=== PATIENT | female | born 1970 | race Caucasian/White ===

== ENCOUNTER → 2019-07-20 | Outpatient (CLI) | payer BC ==
[2008-05-22 20:59] VITALS: BP 155/77
[2019-07-20] VITALS (12 sets, daily range): BP systolic 103–125; BP diastolic 54–80; PULSE 79–94
[~2019-07-20] VITALS: Ht 177.8 cm; Wt 103.4 kg
[~2019-07-20] MED LIST: ALDACTONE 100M100 MG PO; BUSPAR10 MG PO; FARXIGA10 PO; GLUCOPHAGE1000 MG PO; K-DUR 10 MEQ T10 MEQ PO; LASIX 40MG TABL40 MG PO; SYNTHROID0.137 MG PO; XANAX .25M0.25 MG/TA PO
--- NOTE | 2019-07-20 10:28 | NUR ---
PT TAKEN TO CT AND PLACED ON THE TABLE. MONITORING EQUIPMENT PLACED ON PT. IMAGING DONE AND SENT
--- NOTE | 2019-07-20 10:53 | NUR ---
SPECIMENS TAKEN. PROCEDURE COMPLETE. PT ABLE TO TRANSFER SELF TO WHEELCHAIR.
--- NOTE | 2019-07-20 12:29 | NUR ---
PT WAS TAKEN DOWN IN WHEELCHAIR TO V.
== END ==
LOC: COL.RAD 09:30
DX: K74.60 Unspecified cirrhosis of liver (principal)

== ENCOUNTER 2019-07-27 08:03 | Day surgery (SDC) | payer BC ==
[2008-05-22 20:59] VITALS: BP 155/77
[~2019-07-27] VITALS: Ht 177.8 cm; Wt 105.5 kg
[2019-07-27 08:28] VITALS: BP 122/73; PULSE 69; TEMP 98.3
[2019-07-27 09:35] VITALS: BP 133/82; PULSE 82; TEMP 98.1
--- NOTE | 2019-07-27 09:35 | NUR ---
TO [facility] PER CART FROM ENDOSCOPY. AMULATED TO RECLINER WITH ASSIST AND TOLERATED WELL. AT BEDSIDE. DENIES WANTING ANYTHING TO DRINK AT THIS TIME.
[2019-07-27 09:50] VITALS: BP 129/76; PULSE 66
--- NOTE | 2019-07-27 09:50 | NUR ---
CONTINUES TO DENY PAIN OR DISCOMFORT. RECEIVED ICE WATER.
[2019-07-27 10:05] VITALS: BP 113/75; PULSE 66
--- NOTE | 2019-07-27 10:05 | NUR ---
DISCONTINUED IV AND INT- CATHETER INTACT PATIENT GETTING DRESSED AND WAITING FOR DR BRYANT.
--- NOTE | 2019-07-27 10:30 | NUR ---
DR BRYANT INTO TALK WITH PATIENT AND . RECEIVED DISCHARGE INSTRUCTIONS AND VERBALIZED UNDERSTANDING.
--- NOTE | 2019-07-27 10:39 | NUR ---
DISCHARGED PER WC BY NURSING STAFF TO PRIVATE CAR IN CARE OF ANA MARIA.
== END 2019-07-27 10:40 | disposition home or self-care (01) ==
LOC: SDCO 08:03
DX: I85.00 Esophageal varices without bleeding (principal); K74.60 Unspecified cirrhosis of liver; F41.9 Anxiety disorder, unspecified; E28.2 Polycystic ovarian syndrome; E11.9 Type 2 diabetes mellitus without complications; Z79.4 Long term (current) use of insulin; Z79.84 Long term (current) use of oral hypoglycemic drugs; Z88.2 Allergy status to sulfonamides; Z79.899 Other long term (current) drug therapy; E07.9 Disorder of thyroid, unspecified
CPT/HCPCS: J2704; J7030

== ENCOUNTER 2019-08-31 09:08 | Day surgery (SDC) | payer BC ==
[2008-05-22 20:59] VITALS: BP 155/77
[~2019-08-31] VITALS: Ht 177.8 cm; Wt 101.1 kg
[2019-08-31 09:52] VITALS: BP 111/73; PULSE 65; TEMP 98.3
--- NOTE | 2019-08-31 10:05 | NUR ---
TO RM AT 0930 CALL LIGHT IN REACH IN WAITING RM
[2019-08-31 10:55] VITALS: BP 137/82; PULSE 77; TEMP 97.4
--- NOTE | 2019-08-31 10:55 | NUR ---
Patient arrives to [facility] via cart, accompanied by Endo RN Sylvia. Bedside report received. Patient is very emotional, crying and asking for tissues, which she receives. She is alert and oriented. She ambulates with steady gait to chair in room. Monitoring applied - VSS and WNL on room air. She complains of mild gastric pain, which is present at baseline. SHe has Ultram at home PRN for treatment of pain and is prescribed magic mouthwash in addition. Patient denies any nausea. She is offered something to drink - refuses at this time. Will continue to monitor.
[2019-08-31 11:00] VITALS: BP 137/72; PULSE 73
--- NOTE | 2019-08-31 11:00 | NUR ---
Patient's VSS and WNL on room air. Resting in room. No complaints at this time.
[2019-08-31 11:15] VITALS: BP 134/83; PULSE 76
--- NOTE | 2019-08-31 11:15 | NUR ---
Patient is less emotional at this time. She is sitting in chair, denies complaints. She is offered water to drink and receives. Spouse brought to the bedside.
[2019-08-31 11:30] VITALS: BP 133/68; PULSE 67
--- NOTE | 2019-08-31 11:30 | NUR ---
PATIENT RESTING IN CHAIR. DENIES NAUSEA. RATES PAIN AT 7/10 SAME BEFORE NO WORSE. WARM BLANKET GIVEN FOR COMFORT. SIPS ON GLASS OF WATER.
[2019-08-31 11:45] VITALS: BP 131/85; PULSE 69
--- NOTE | 2019-08-31 11:45 | NUR ---
PATIENT HAVING NO NAUSEA TOLERATED ORAL FLUID WELL. IV DC'D @ 3799.
--- NOTE | 2019-08-31 12:20 | NUR ---
PATIENT ESCORTED TO EXIT BY JUAN MIGUEL VICTORIA VIA WHEELCHAIR. DISHCARGED TO HOME WITH RIDE BY PRIVATE CAR. DISCHARGE INSTRUCTIONS EXPLAINED AND REVIEWED. VERBAL UNDERSTANDING RECEIVED AND SIGNED. WRITTEN COPIES OF INSTRUCTIONS GIVEN TO PATIENT.
== END 2019-08-31 12:20 | disposition home or self-care (01) ==
LOC: SDCO 09:08
DX: K74.60 Unspecified cirrhosis of liver (principal); I85.10 Secondary esophageal varices without bleeding; K29.30 Chronic superficial gastritis without bleeding; E11.9 Type 2 diabetes mellitus without complications; F41.9 Anxiety disorder, unspecified; E28.2 Polycystic ovarian syndrome; E66.9 Obesity, unspecified; Z88.2 Allergy status to sulfonamides; Z79.84 Long term (current) use of oral hypoglycemic drugs
CPT/HCPCS: J2704; J7030

== ENCOUNTER 2019-09-28 07:26 | Day surgery (SDC) | payer BC ==
[2008-05-22 20:59] VITALS: BP 155/77
[~2019-09-28] VITALS: Ht 177.8 cm; Wt 100.0 kg
[2019-09-28 07:54] VITALS: BP 98/58; PULSE 59; TEMP 97.5
[2019-09-28] MEDS ORDERED: CORGARD40 MG PO (08:02)
[2019-09-28] MEDS ORDERED: ERGOCALCIFER50000 IU PO (08:04)
[2019-09-28] MEDS ORDERED: COMPOUND DRUG PO (08:05)
--- NOTE | 2019-09-28 08:06 | NUR ---
TO [facility] 6 AT 0730- CALL LIGHTIN REACH AT BEDSIDE.
[2019-09-28 09:00] VITALS: BP 105/82; PULSE 58; TEMP 97.2
[2019-09-28 09:15] VITALS: BP 94/46; PULSE 60
[2019-09-28 09:30] VITALS: BP 91/52; PULSE 58
--- NOTE | 2019-09-28 09:58 | NUR ---
Pt returned via cart to [facility]. A&O. SBA to recliner in [place]. Spouse brought to room. VSS-see flowsheet. Pt tolerated water. Denies complaints. Dr Mcwilliams visited with pt and . Discharge teaching completed, verbalized understanding. PTs IV removed and dressed. Taken via wheelchair to private vehicle for dc home with driving.
[2019-09-28 10:24] VITALS: BP 108/62; PULSE 67
== END 2019-09-28 09:58 | disposition home or self-care (01) ==
LOC: SDCO 07:26
DX: K74.60 Unspecified cirrhosis of liver (principal); I85.10 Secondary esophageal varices without bleeding; F41.9 Anxiety disorder, unspecified; E11.9 Type 2 diabetes mellitus without complications; E28.2 Polycystic ovarian syndrome; Z88.2 Allergy status to sulfonamides; Z79.84 Long term (current) use of oral hypoglycemic drugs
CPT/HCPCS: J2704; J3010; J7120

== ENCOUNTER 2020-04-11 07:42 | Day surgery (SDC) | payer BC ==
[2008-05-22 20:59] VITALS: BP 155/77
[~2020-04-11] VITALS: Ht 177.8 cm; Wt 103.7 kg
[~2020-04-11 07:42] MED LIST changes: +COMPOUND DRUG PO; +CORGARD40 MG PO; +ERGOCALCIFER50000 IU PO
[2020-04-11] MEDS ORDERED: SYNTHROID0.125 MG/T PO (08:07)
[2020-04-11] MEDS ORDERED: CRESTOR5 MG PO (08:08)
[2020-04-11 08:09] VITALS: BP 94/54; PULSE 66; TEMP 98.1
[2020-04-11] MEDS ORDERED: CORGARD20 MG PO (08:09)
[2020-04-11 08:50] VITALS: BP 106/59; PULSE 68; TEMP 98.3
[2020-04-11 09:05] VITALS: BP 88/55; PULSE 68
[2020-04-11 09:15] VITALS: BP 90/66
--- NOTE | 2020-04-11 09:27 | NUR ---
PT RETURNED PER CART INTO PT ROOM #2. PT SLEEPY, A/OX3, DENIES NAUSEA. VSS WILL CONT TO MONITOR.
[2020-04-11 09:30] VITALS: BP 90/50; PULSE 68; TEMP 98.3
--- NOTE | 2020-04-11 10:27 | NUR ---
PT ALERT AND ORIENTATED. HRR WITH A PT STATED, HEART MURMUR; WAS AUSCULTATED. BOWEL SOUNDS PRESENT. VSS, BP ON ADMISSION WAS 94/54. LUNGS CLEAR. DENIES NAUSEA, DENIES PAIN.
--- NOTE | 2020-04-11 10:34 | NUR ---
PT WAS DISCHARGED PER WC. PT VOIDED WITHOUT DIFFICULTY. PT A/OX3. DENIES PAIN AND NAUSEA. DENIED WANTING ANYMORE THAN WATER TO DRINK BECAUSE [facility]. IV WAS DC'D WITHOUT ANY DIIFICULTY TO RIGHT WRIST. WAS PRESENT AT BEDSIDE. DISCHARGE INSTRUCTIONS GIVEN, PT VOICES UNDERSTANDING.
[2020-04-11 21:14] VITALS: BP 99/56; PULSE 69
== END 2020-04-11 10:49 | disposition home or self-care (01) ==
LOC: SDCO 07:42
DX: I85.00 Esophageal varices without bleeding (principal); K74.60 Unspecified cirrhosis of liver; Z88.2 Allergy status to sulfonamides; E11.9 Type 2 diabetes mellitus without complications; E07.9 Disorder of thyroid, unspecified; Z79.84 Long term (current) use of oral hypoglycemic drugs; Z79.899 Other long term (current) drug therapy
CPT/HCPCS: J2704; J7030

== ENCOUNTER 2021-03-13 07:12 | Day surgery (SDC) | payer BC ==
[2008-05-22 20:59] VITALS: BP 155/77
[~2021-03-13] VITALS: Ht 177.8 cm; Wt 113.9 kg
[~2021-03-13 07:12] MED LIST changes: +CORGARD20 MG PO; +CRESTOR5 MG PO; +SYNTHROID0.125 MG/T PO
[2021-03-13 07:35] VITALS: BP 121/69; PULSE 68; TEMP 97.9
[2021-03-13] MEDS ORDERED: VITAMIN D31000 I1 PO (08:02)
[2021-03-13 09:15] VITALS: BP 123/64; PULSE 79; TEMP 97.7
--- NOTE | 2021-03-13 09:15 | NUR ---
Pt returned via cart to [facility]. SBA to recliner in [place]. Pt reports pain from banding. Denies wanting pain medication and reports she has magic mouthwash at home and it helps with her discomfort after this procedure. Pt sitting up in recliner and denies wanting to have any clear liquids at this time. Call light in reach. VSS-see flowsheet.
[2021-03-13 09:30] VITALS: BP 112/57; PULSE 78
[2021-03-13 09:45] VITALS: BP 106/72; PULSE 71
--- NOTE | 2021-03-13 10:00 | NUR ---
VS remain stable-see flowsheet. Pt refused anything to drink. Dr Bah was in to visit with patient post procedure. Pt dressed independently and IV removed with pressure dressing applied. Discharge teaching completed, pt verbalized understanding. Taken via wheelchair to exit and pt ambulated with a steady gait to private vehicle for daughter to drive pt home.
[2021-05-08] MEDS ORDERED: SYNTHROID0.137 MG PO (07:23)
== END 2021-03-13 10:00 | disposition home or self-care (01) ==
LOC: SDCO 07:12
DX: K74.60 Unspecified cirrhosis of liver (principal); I85.10 Secondary esophageal varices without bleeding; G47.00 Insomnia, unspecified; E28.2 Polycystic ovarian syndrome; E78.5 Hyperlipidemia, unspecified; M19.90 Unspecified osteoarthritis, unspecified site; E11.9 Type 2 diabetes mellitus without complications; E07.9 Disorder of thyroid, unspecified; Z79.899 Other long term (current) drug therapy; Z79.84 Long term (current) use of oral hypoglycemic drugs; Z79.890 Hormone replacement therapy
CPT/HCPCS: OP; J2704; J7030

== ENCOUNTER → 2021-05-08 | Day surgery (SDC) | payer BC ==
[2008-05-22 20:59] VITALS: BP 155/77
[~2021-05-08] VITALS: Ht 177.8 cm; Wt 111.9 kg
[~2021-05-08] MED LIST changes: +VITAMIN D31000 I1 PO
[2021-05-08 07:25] VITALS: BP 107/74; PULSE 72; TEMP 97
[2021-05-08 08:30] VITALS: BP 117/71; PULSE 71; TEMP 98.1
--- NOTE | 2021-05-08 08:30 | NUR ---
PATIENT BROUGHT BACK TO [facility] 4 VIA CART. PLACED ON MONITORS, STABLE. PATIENT STATES SHE HAS A PAIN OF 7/10 TO THROAT. STATES SHE DOES NOT WANT PAIN MEDICATION AT THIS TIME. STATES SHE DOES NOT WANT ANYTHING TO DRINK RIGHT NOW. PATIENT HAS HAD VARICEAL BANDING PREVIOUSLY. REPORT RECIEVED FROM DIANA SHORT RN. WARM BLANKET PROVIDED, WILL CONTINUE TO MONITOR.
[2021-05-08 08:45] VITALS: BP 101/65; PULSE 61
[2021-05-08 09:00] VITALS: BP 103/64; PULSE 55
--- NOTE | 2021-05-08 09:00 | NUR ---
PATIENT STATES SHE WOULD LIKE TO GO HOME AT THIS TIME. IV REMOVED, INTACT. PATIENT TO GET DRESSED AT THIS TIME. AMBULATED TO BATHROOM WITHOUT DIFFICULTY. WILL MONITOR.
--- NOTE | 2021-05-08 09:15 | NUR ---
DISCHARGE INSTRUCTIONS REVIEWED WITH PATIENT. SISTER IN PARKING LOT TO DRIVE HOME. BROUGHT DOWN TO LOBBY VIA WHEEL CHAIR. ALL BELONGINGS IN HAND,
== END ==
LOC: SDCO 06:53
DX: K74.60 Unspecified cirrhosis of liver (principal); I85.10 Secondary esophageal varices without bleeding; E78.5 Hyperlipidemia, unspecified; E07.9 Disorder of thyroid, unspecified; E11.9 Type 2 diabetes mellitus without complications; Z79.84 Long term (current) use of oral hypoglycemic drugs; Z20.822 Contact with and (suspected) exposure to COVID-19; Z79.890 Hormone replacement therapy; Z79.899 Other long term (current) drug therapy
CPT/HCPCS: J2704; J7030

== ENCOUNTER 2021-06-05 06:05 | Day surgery (SDC) | payer BC ==
[2008-05-22 20:59] VITALS: BP 155/77
[~2021-06-05] VITALS: Ht 177.8 cm; Wt 112.1 kg
[2021-06-05 06:42] VITALS: BP 112/76; PULSE 64; TEMP 98.4
[2021-06-05 07:25] VITALS: BP 98/57; PULSE 63; TEMP 97.2
[2021-06-05 07:30] VITALS: BP 110/55; PULSE 62
[2021-06-05 07:45] VITALS: BP 97/58; PULSE 57
--- NOTE | 2021-06-05 08:05 | NUR ---
0725 Pt returns from endo procedure via cart to [facility]. Pt ambulates from cart to recliner with RN assist. Monitors on and alarms set. Call light within reach. Report received from JULIEN Carvalho. Pt denies pain or nausea. Pt alert and oriented. Pt requests water and food. 0740 Pt taking food and drink well. 0800 Discharge instructions given to pt. All questions answered to her satisfaction. Handed to her are a thank you card and discharge information. 0805 Pt transferred out of the hospital via wheelchair and this RN assist to private vehicle driven by pt's family.
== END 2021-06-05 08:05 | disposition home or self-care (01) ==
LOC: SDCO 06:05
DX: K74.60 Unspecified cirrhosis of liver (principal); I85.10 Secondary esophageal varices without bleeding; K22.8 Other specified diseases of esophagus; G47.00 Insomnia, unspecified; E28.2 Polycystic ovarian syndrome; E03.9 Hypothyroidism, unspecified; E11.9 Type 2 diabetes mellitus without complications; E78.5 Hyperlipidemia, unspecified; F41.9 Anxiety disorder, unspecified; Z20.822 Contact with and (suspected) exposure to COVID-19
CPT/HCPCS: J2704; J3010; J7030

== ENCOUNTER 2022-06-11 06:56 | Day surgery (SDC) | payer BC ==
[2008-05-22 20:59] VITALS: BP 155/77
[~2022-06-11] VITALS: Ht 177.8 cm; Wt 117.0 kg
[2022-06-11 07:26] VITALS: BP 112/69; PULSE 66; TEMP 97.1
[2022-06-11 08:25] VITALS: BP 104/62; PULSE 68; TEMP 96.7
[2022-06-11 08:40] VITALS: BP 99/54; PULSE 64
[2022-06-11 08:55] VITALS: BP 97/58; PULSE 65
--- NOTE | 2022-06-11 09:15 | NUR ---
0825 PT RETURNED TO [facility] VIA CART. TRANSFERRED TO CHAIR WITH RN ASSIST. ALERT AND ORIENTED. MONITORS ATTACHED, INTERVALS AND ALARMS SET. VSS. PT DENIES PAIN OR NAUSEA. FOOD AND DRINK PROVIDED. CALL LIGHT IN REACH. 0840 VSS. PT DENIES DISCOMFORT. TOLERATING FOOD AND DRINK WELL. 0855 VSS. PT DENIES DISCOMFORT. REVIEWED DISCHARGE INSTRUCTIONS AND EDUCATION MATERIAL, ANSWERED ALL QUESTIONS. PT STATES SPOKE WITH DR IN PROCEDURE ROOM. IV REMOVED WITHOUT COMPLICATIONS. PT ALLOWED TO DRESS. 0915 TRANSFERRED PT VIA WHEELCHAIR TO PERSONAL VEHICLE TO BE DRIVEN HOME BY MOTHER.
== END 2022-06-11 09:15 | disposition home or self-care (01) ==
LOC: SDCO 06:56
DX: K74.69 Other cirrhosis of liver (principal); I85.10 Secondary esophageal varices without bleeding; R18.8 Other ascites; R79.89 Other specified abnormal findings of blood chemistry; Z86.16 Personal history of COVID-19; E11.9 Type 2 diabetes mellitus without complications; Z79.84 Long term (current) use of oral hypoglycemic drugs
CPT/HCPCS: J2704; J7030